=== PATIENT | female | born 1955 | race Caucasian/White ===

== ENCOUNTER 2019-06-22 16:59 | Emergency (ER) | payer OTHER ==
[~2019-06-22] VITALS: Ht 154.9 cm; Wt 104.3 kg
--- NOTE | 2019-06-22 17:25 | NUR ---
64 YEAR OLD FEMALE C/O COUGH AND CONGESTION, FEVER X 5 DAYS. TOOK LEVAQUIN FOR 5 DAYS NO RELIEF. ALERT AND ORIENTED X4 BREATHING EVEN UNLABORED WITH NO DISTRESS NOTED. SKIN INTACT. WAITING TO BE SEEN BY
[2019-06-22] MEDS ORDERED: predniSONE 20 MG TABLET ONE (17:54)
[2019-06-22] MEDS ORDERED: IPRATROPIUM NEB FS 0.5 MG/2.5 ML AMPUL.NEB NEB ONE (18:00)
[2019-06-22] MEDS ORDERED: ALBUTEROL FS 2.5 MG/3 ML VIAL.NEB NEB ONE (18:00)
[2019-06-22] MEDS ORDERED: ALBUTEROL FS 2.5 MG/3 ML VIAL.NEB ONE (18:00)
[2019-06-22] MEDS ORDERED: predniSONE 20 MG TABLET PO ONE (18:00)
[2019-06-22] MEDS ORDERED: IPRATROPIUM NEB FS 0.5 MG/2.5 ML AMPUL.NEB ONE (18:00)
--- NOTE | 2019-06-22 18:03 | NUR ---
OUTBOUND SALES REPRESENTATIVE AT BEDSIDE
--- NOTE | 2019-06-22 18:08 | NUR ---
RT AT BEDSIDE FOR BREATHING TX
--- NOTE | 2019-06-22 19:20 | NUR ---
Patient discharged to home in stable condition. Written and verbal after care instructions given. Patient verbalizes understanding of instruction.
[2019-06-22 19:25] VITALS: BP 166/92
== END 2019-06-22 19:25 | disposition home or self-care (01) ==
LOC: ER 17:09
DX: J45.909 Unspecified asthma, uncomplicated (principal); I10 Essential (primary) hypertension; Z85.43 Personal history of malignant neoplasm of ovary
CPT/HCPCS: 71045; 93005; 94644; 99285; J7512

== ENCOUNTER 2019-07-10 17:15 | Emergency (ER) | payer OTHER ==
[~2019-07-10] VITALS: Ht 160 cm; Wt 93.4 kg
--- NOTE | 2019-07-10 17:29 | NUR ---
PT TO ED BED 04 C/O GENERALIZED WEAKNESS, SOB FOR THE PAST 5 DAYS. PT ALSO C/O HIGH BLOOD SUGAR AND HYPERTENSION. PT DENIES CHEST PAIN. PLACED ON MONITOR. STABLE VITALS. AWAITING MD PANCHAL.
--- NOTE | 2019-07-10 17:45 | NUR ---
DR CHAMPION AT BEDSIDE FOR EVAL.
--- NOTE | 2019-07-10 17:58 | NUR ---
RADIOLOGY AT BEDSIDE FOR CHEST XRAY.
--- NOTE | 2019-07-10 18:00 | NUR ---
IV LINE STARTED BLOOD DRAWN AND SENT TO LAB.
[2019-07-10 18:07] LABS: BASOPHILS % (AUTO) 0.6 % (0.0-2.0); EOSINOPHILS % (AUTO) 0.7 % (0.0-6.0); HEMATOCRIT 36 % (33-45); HEMOGLOBIN 11.8 g/dL (11.5-14.8); LYMPHOCYTES # (AUTO) 0.7 /CMM (0.8-4.8); LYMPHOCYTES % (AUTO) 13.2 % (20.0-44.0); MEAN CORPUSCULAR HGB CONC 33 g/dl (31.0-36.0); MEAN CORPUSCULAR VOLUME 88 fL (82-100); MONOCYTES # (AUTO) 0.4 /CMM (0.1-1.30); MONOCYTES % (AUTO) 7.8 % (2.0-12.0); NEUTROPHILS # (AUTO) 4.2 /CMM (1.8-8.9); NEUTROPHILS % (AUTO) 77.7 % (43.0-81.0); PLATELET COUNT (AUTO) 213 /CMM (150-450); RED BLOOD CELL COUNT(AUTO) 4.08 MIL/uL (4.0-5.2); WHITE BLOOD COUNT (AUTO) 5.4 K/uL (4.3-11.0)
[2019-07-10 18:25] LABS: CALCIUM, SERUM 9.2 mg/dL (8.5-10.1); CARBON DIOXIDE 26 mmol/L (21-32); CHLORIDE 105 mmol/L (98-107); GLUCOSE 139 mg/dL (74-106); SODIUM SERUM 141 mmol/L (136-145); UREA NITROGEN, BLOOD 16 mg/dL (7-18)
[2019-07-10 18:30] LABS: ALANINE AMINOTRANSFERASE 32 U/L (12-78); ALBUMIN 3.8 g/dL (3.4-5.0); ALKALINE PHOSPHATASE 67 U/L (46-116); ASPARTATE AMINOTRANSFERASE 14 U/L (15-37); B-TYPE NATRIURETIC PEPTIDE 43 PG/ML (0-125); BILIRUBIN,DIRECT 0.1 mg/dL (0.0-0.2); BILIRUBIN,TOTAL 0.3 mg/dL (0.2-1.0); TOTAL PROTEIN, SERUM 7.5 g/dL (6.4-8.2)
--- NOTE | 2019-07-10 19:08 | NUR ---
REPORT TO CHILD CARE GROUP LEADER NURSE CHRISTIAN FOR RASHAD.
--- NOTE | 2019-07-10 20:52 | NUR ---
PT MEDICALLY CLEAR FOR DC HOME. IV removed. Catheter intact and site benign. Pressure and 4x4 applied to site. No bleeding noted.Patient discharged to home in stable condition. RX AND Written and verbal after care instructions given. Patient verbalizes understanding of instruction.
[2019-07-10 21:47] VITALS: BP 127/88
== END 2019-07-10 21:48 | disposition home or self-care (01) ==
LOC: ER 17:22
DX: J45.909 Unspecified asthma, uncomplicated (principal); I10 Essential (primary) hypertension; E11.9 Type 2 diabetes mellitus without complications
CPT/HCPCS: 36415; 71045-TC; 80048-TC; 80076-TC; 83880; 84484-TC; 85025-TC; 85378-TC; 85730-TC

== ENCOUNTER 2020-03-09 11:04 | Emergency (ER) | payer OTHER ==
[~2020-03-09] VITALS: Ht 152.4 cm; Wt 100.8 kg
--- NOTE | 2020-03-09 11:26 | NUR ---
BIBFAMILY FROM HOME TO ER BED 7. AAOX4. NOT IN RESP DISTRESS, BREATHING EVEN AND UNLABORED. CAME IN FOR COUGH, CONGESTION, FEVER AND LOSS OF TASTE FOR THE PAST 3 DAYS. PT'S FAMILY REPORTED THAT SHE RECEIVED TYLENOL @ 0200. PT IS SATTING @ 96-97% ON RA. AWAITING MD FOR EVAL.
--- NOTE | 2020-03-09 12:00 | NUR ---
COVID SWAB DONE AND SENT TO LAB
--- NOTE | 2020-03-09 12:00 | NUR ---
ROLDAN IN LAW - GERALDO - [phone]
[2020-03-09] MEDS ORDERED: CLONIDINE HCL 0.1 MG TABLET ONE (13:15)
--- NOTE | 2020-03-09 13:24 | NUR ---
SPOKE WITH SON, LOULOU, FOR DISCHARGE INSTRUCTION AND WILL RUBBER GOODS INSPECTOR TESTER MOTHER
[2020-03-09] MEDS ORDERED: CLONIDINE HCL 0.1 MG TABLET PO ONE (13:30)
--- NOTE | 2020-03-09 13:59 | NUR ---
FOLLOWED UP WITH PT'S DAUGTHER IN LAW REGARDING E MAIL SYSTEM ADMINISTRATOR. GERALDO ON HER WAY
[2020-03-09] MEDS ORDERED: ONDANSETRON 4 MG TAB.RAPDIS ONE (14:43)
--- NOTE | 2020-03-09 15:26 | NUR ---
Patient discharged to home in stable condition under the care of her daughter on;aw. Written and verbal after care instructions given to son over the phone. Patient's son verbalizes understanding of instruction. Pt ambulatory with a steady gait. Pt picked up the daughter in law
[2020-03-09 15:33] VITALS: BP 153/88
== END 2020-03-09 15:33 | disposition home or self-care (01) ==
LOC: ER 11:11
DX: U07.1 COVID-19 (principal); I10 Essential (primary) hypertension; Z85.43 Personal history of malignant neoplasm of ovary
CPT/HCPCS: 71045; 87426; 99284; C9803; Q0162

== ENCOUNTER 2020-09-12 15:00 | Emergency (ER) | payer OTHER ==
[~2020-09-12] VITALS: Ht 162.6 cm; Wt 104.8 kg
--- NOTE | 2020-09-12 15:00 | NUR ---
PT BIB DAUGHTER C/O DIZZINESS X 1 WEEK "LIKE THE ROOM IS SPINNING" PT IS AAOX4, NOT IN RESPIRATORY DISTRESS, HOOKED TO BARREL ROLLER, KEPT RESTED AND COMFORTABLE. WILL CONTINUE TO MONITOR.
[2020-09-12] MEDS ORDERED: CHOL200010 PO (15:09)
[2020-09-12] MEDS ORDERED: SERT-438 PO (15:09)
[2020-09-12] MEDS ORDERED: NIFE-34 PO (15:09)
[2020-09-12] MEDS ORDERED: LOSA100T31 PO (15:09)
[2020-09-12] MEDS ORDERED: OMEG-220 PO (15:09)
[2020-09-12] MEDS ORDERED: ASPI-1420 PO (15:09)
[2020-09-12] MEDS ORDERED: SIMV-49 PO (15:09)
[2020-09-12] MEDS ORDERED: HYDR25TA4 PO (15:09)
--- NOTE | 2020-09-12 15:29 | NUR ---
PT SEEN AND EXAMINED BY .
[2020-09-12] MEDS ORDERED: diphenhydrAMINE HCL 50 MG/ML VIAL IV ONE (15:30)
[2020-09-12] MEDS ORDERED: ONDANSETRON HCL/PF 4 MG/2 ML VIAL IVP ONE (15:30)
[2020-09-12] MEDS ORDERED: diphenhydrAMINE HCL 50 MG/ML VIAL ONE (15:32)
[2020-09-12] MEDS ORDERED: ONDANSETRON HCL/PF 4 MG/2 ML VIAL ONE (15:33)
--- NOTE | 2020-09-12 15:40 | NUR ---
IV LINE ESTABLISHED BLOOD DRAWN AND SENT TO LAB.
[2020-09-12] MEDS ORDERED: ACETAMINOPHEN ES 500 MG TABLET ONE (15:41)
--- NOTE | 2020-09-12 15:45 | NUR ---
INVESTMENT RECOVERY TECHNICIAN AT BEDSIDE FOR XRAY.
--- NOTE | 2020-09-12 15:52 | NUR ---
PT IS WHEELED TO CT SCAN VIA [facility].
[2020-09-12 15:59] LABS: BASOPHILS % (AUTO) 0.4 % (0.0-2.0); HEMATOCRIT 34 % (33-45); HEMOGLOBIN 11.3 g/dL (11.5-14.8); LYMPHOCYTES % (AUTO) 21.1 % (20.0-44.0); MEAN CORPUSCULAR HGB CONC 33 g/dl (31.0-36.0); MEAN CORPUSCULAR VOLUME 89 fL (82-100); MONOCYTES # (AUTO) 0.4 /CMM (0.1-1.30); MONOCYTES % (AUTO) 9.2 % (2.0-12.0); NEUTROPHILS # (AUTO) 3.1 /CMM (1.8-8.9); NEUTROPHILS % (AUTO) 65.3 % (43.0-81.0); PLATELET COUNT (AUTO) 218 /CMM (150-450); RED BLOOD CELL COUNT(AUTO) 3.81 MIL/uL (4.0-5.2); WHITE BLOOD COUNT (AUTO) 4.8 K/uL (4.3-11.0)
[2020-09-12] MEDS ORDERED: ACETAMINOPHEN ES 500 MG TABLET PO ONE (16:00)
[2020-09-12 16:12] LABS: ALBUMIN 3.4 g/dL (3.4-5.0); BILIRUBIN,DIRECT 0.1 mg/dL (0.0-0.2); BILIRUBIN,TOTAL 0.3 mg/dL (0.2-1.0); CALCIUM, SERUM 9.1 mg/dL (8.5-10.1); CREATININE 0.8 mg/dL (0.6-1.3); POTASSIUM 4.6 mmol/L (3.5-5.1)
[2020-09-12] MEDS ORDERED: MECL-159 PO (16:38)
[2020-09-12 17:07] VITALS: BP 127/71
== END 2020-09-12 17:07 | disposition home or self-care (01) ==
LOC: ER 15:02
DX: R42 Dizziness and giddiness (principal); I10 Essential (primary) hypertension; Z79.899 Other long term (current) drug therapy; Z79.82 Long term (current) use of aspirin
CPT/HCPCS: 36415; 70450-TC; 71045-TC; 72125-TC; 80048-TC; 80076-TC; 85025-TC; 85730-TC; J1200; J2405

== ENCOUNTER 2020-11-28 15:21 | Inpatient (IN) | payer OTHER ==
[~2020-11-28] VITALS: Ht 165.1 cm; Wt 103.4 kg
[~2020-11-28 15:21] MED LIST: ASPI-1420 PO; CHOL200010 PO; HYDR25TA4 PO; LOSA100T31 PO; MECL-159 PO; NIFE-34 PO; OMEG-72 PO; SERT50TA12 PO; SIMV-49 PO
[2020-11-28] MEDS ORDERED: MORPHINE SULFATE INJ 2 MG/ML DISP.SYRIN IV ONE (16:00)
[2020-11-28] MEDS ORDERED: PANTOPRAZOLE 40 MG VIAL IV ONE (16:00)
[2020-11-28] MEDS ORDERED: IV NS 0.9% 500 ML BAG IV ONE (16:00)
[2020-11-28] MEDS ORDERED: ONDANSETRON HCL/PF 4 MG/2 ML VIAL IVP ONE (16:00)
[2020-11-28] MEDS ORDERED: ONDANSETRON HCL/PF 4 MG/2 ML VIAL ONE (16:03)
[2020-11-28] MEDS ORDERED: PANTOPRAZOLE 40 MG VIAL ONE (16:03)
[2020-11-28] MEDS ORDERED: MORPHINE SULFATE INJ 2 MG/ML DISP.SYRIN ONE (16:04)
--- NOTE | 2020-11-28 16:15 | NUR ---
PT C/O ABD PAIN SINCE THIS AM. AAOX4, VSS. RR EVEN & UNLABORED. DENIES CP, SOB, DIZZINESS, N/V/D AT THIS TIME. PT SEEN & EVAL'D BY DR. JULIAN. MEDICATED ORDERED, PT LINDSAY WELL. WILL CONT TO MONITOR.
[2020-11-28 16:19] LABS: BASOPHILS % (AUTO) 0.2 % (0.0-2.0); EOSINOPHILS % (AUTO) 0.3 % (0.0-6.0); HEMATOCRIT 38 % (33-45); HEMOGLOBIN 12.8 g/dL (11.5-14.8); LYMPHOCYTES # (AUTO) 0.8 K/uL (0.8-4.8); LYMPHOCYTES % (AUTO) 15.6 % (20.0-44.0); MEAN CORPUSCULAR HGB CONC 33 g/dl (31.0-36.0); MEAN CORPUSCULAR VOLUME 88 fL (82-100); MONOCYTES # (AUTO) 0.4 K/uL (0.1-1.30); MONOCYTES % (AUTO) 8.1 % (2.0-12.0); NEUTROPHILS % (AUTO) 75.8 % (43.0-81.0); PLATELET COUNT (AUTO) 249 K/uL (150-450); RED BLOOD CELL COUNT(AUTO) 4.35 MIL/uL (4.0-5.2); WHITE BLOOD COUNT (AUTO) 5.3 K/uL (4.3-11.0)
[2020-11-28 16:29] LABS: CALCIUM, SERUM 9.4 mg/dL (8.5-10.1); CARBON DIOXIDE 29 mmol/L (21-32); CHLORIDE 102 mmol/L (98-107); CREATININE 0.9 mg/dL (0.6-1.3); GLUCOSE 162 mg/dL (74-106); POTASSIUM 3.9 mmol/L (3.5-5.1); SODIUM SERUM 140 mmol/L (136-145); UREA NITROGEN, BLOOD 21 mg/dL (7-18)
[2020-11-28 16:35] LABS: ALANINE AMINOTRANSFERASE 46 U/L (12-78); ALBUMIN 3.9 g/dL (3.4-5.0); ALKALINE PHOSPHATASE 64 U/L (46-116); ASPARTATE AMINOTRANSFERASE 20 U/L (15-37); BILIRUBIN,DIRECT 0.2 mg/dL (0.0-0.2); BILIRUBIN,TOTAL 0.6 mg/dL (0.2-1.0); LIPASE 83 U/L (73-393); TOTAL PROTEIN, SERUM 7.7 g/dL (6.4-8.2)
--- NOTE | 2020-11-28 16:36 | NUR ---
THE PATIENT IS TAKEN TO CT
[2020-11-28 17:23] LABS: BILIRUBIN,URINE Negative (NEGATIVE); COLOR,URINE YELLOW (YELLOW); LEUKOCYTE ESTERASE ,URINE Negative (NEGATIVE); NITRITE, URINE Negative (NEGATIVE); PH,URINE 7.5 (5.0-8.0); PROTEIN,URINE Negative (NEGATIVE); UGLUCOSE Negative (NEGATIVE); UROBILINOGEN,URINE 0.2 EU/dL (0.2)
[2020-11-28 17:24] LABS: BACTERIA,URINE Rare /HPF (None Seen); SQUAMOUS EPITHELIAL CELL,UR Few /HPF (None Seen); WBC,URINE NONE SEEN /HPF (0-3)
[2020-11-28] MEDS ORDERED: HYDROMORPHONE 1 MG/1 ML DISP.SYRIN ONE (18:00)
[2020-11-28] MEDS ORDERED: HYDROMORPHONE 1 MG/1 ML DISP.SYRIN IV ONE (18:00)
--- NOTE | 2020-11-28 18:08 | NUR ---
CALLED [facility], PAGED DR OSMAN
--- NOTE | 2020-11-28 18:13 | NUR ---
MEDICATED PER ERMD ORDER, PT LINDSAY WELL. WILL CONT TO MONITOR.
[2020-11-28] MEDS ORDERED: DIATR MEGLU/DIATRIZOATE SODIUM 120 ML BOTTLE (GASTROGRAPHIN) ONE (18:42)
--- NOTE | 2020-11-28 19:04 | NUR ---
Desi antunez in [facility] - 11/28/20 at [address]
--- NOTE | 2020-11-28 19:05 | NUR ---
called [facility], paged dr garcia
--- NOTE | 2020-11-28 20:09 | NUR ---
AYDINID SWABBED, SENT TO LAB.
[2020-11-28] MEDS ORDERED: ONDANSETRON HCL/PF 4 MG/2 ML VIAL IVP PRN (21:30)
[2020-11-28] MEDS ORDERED: ACETAMINOPHEN 650 MG/SUPP.RECT RC PRN (21:30)
[2020-11-28] MEDS ORDERED: MORPHINE SULFATE INJ 2 MG/ML DISP.SYRIN IV PRN (21:30)
--- NOTE | 2020-11-28 21:53 | NUR ---
PT ASLEEP, EASILY AWAKEN BY VERBAL STIMULI. DENIES ABD PAIN, CP, SOB, DIZZINESS, N/V AT THIIS TIME. AWAITING BED & WILL CONT TO MONITOR.
--- NOTE | 2020-11-28 23:32 | NUR ---
PER DAUGHTER IN LAW, DO NOT GIVE MORPHINE TO PT.
--- NOTE | 2020-11-28 23:33 | NUR ---
PER DAUGHTER IN LAW, DO NOT TAKE PREDNISONE, PT HAS ALLERGIC REACTION AFTER 3 DAYS.
[2020-11-29 00:30] VITALS: BP 121/59
[2020-11-29 00:45] VITALS: BP 121/59
--- NOTE | 2020-11-29 00:54 | NUR ---
REPORT GIVEN TO ZACH NATARAJAN FOR RASHAD. PT TRANSFERED PER ACLS PROT[employer]OL
--- NOTE | 2020-11-29 01:00 | NUR ---
JUVENILE CORRECTIONAL OFFICER NOTES RECEIVED PT FROM [facility] VIA [facility] ACCOMPANIED BY RN, JESE. PT A/O X4, ABLE TO VERBALIZE NEEDS. DENIES ANY PAIN. ON ROOM AIR, BREATHING EVEN/UNLABORED, NO SOB. IV SITE ON L-AC #20G INTACT/PATENT, FLUSHES WELL. PT HAD N/V X1 WITH CLEAR YELLOWISH EMESIS SHORTLY AFTER TRANSFERRING FROM [facility] TO BED AND WAS GIVEN ZOFRAN 4M IVP ORDERED. MADE COMFORTABLE AND KEPT HOB ELEVATED. PT STATED, "I'M OK" AFTER SETTLING IN BED. PT IN NO ACUTE DISTRESS. SAFETY MEASURES IN PLACE, BED IN LOWEST LOCKED POSITION, S/R UP X2, CALL LIGHT AND TABLE WITHIN EASY REACH. WILL CONTINUE TO MONITOR.
--- NOTE | 2020-11-29 01:27 | NUR ---
RN NOTES REASSESSED PT, SHE DENIES ANY NAUSEA AT THIS TIME. RESTING COMFORTABLY IN BED.
[2020-11-29] MEDS: IV D5/0.45 NACL 1,000 ML IV PRN ×2 (02:38→19:17)
[2020-11-29 04:00] VITALS: BP 127/66
[2020-11-29 06:09] LABS: BASOPHILS % (AUTO) 0.2 % (0.0-2.0); EOSINOPHILS % (AUTO) 0.4 % (0.0-6.0); HEMATOCRIT 34 % (33-45); HEMOGLOBIN 11.3 g/dL (11.5-14.8); LYMPHOCYTES # (AUTO) 0.8 K/uL (0.8-4.8); LYMPHOCYTES % (AUTO) 14.4 % (20.0-44.0); MEAN CORPUSCULAR HGB CONC 33 g/dl (31.0-36.0); MEAN CORPUSCULAR VOLUME 89 fL (82-100); MONOCYTES # (AUTO) 0.6 K/uL (0.1-1.30); MONOCYTES % (AUTO) 10.4 % (2.0-12.0); NEUTROPHILS % (AUTO) 74.6 % (43.0-81.0); PLATELET COUNT (AUTO) 227 K/uL (150-450); WHITE BLOOD COUNT (AUTO) 5.3 K/uL (4.3-11.0)
[2020-11-29 06:31] LABS: ALBUMIN 3.4 g/dL (3.4-5.0); BILIRUBIN,TOTAL 0.4 mg/dL (0.2-1.0); CALCIUM, SERUM 8.5 mg/dL (8.5-10.1); MAGNESIUM 2.3 mg/dL (1.8-2.4); PHOSPHORUS 4.7 mg/dL (2.5-4.9); POTASSIUM 3.8 mmol/L (3.5-5.1); TOTAL PROTEIN, SERUM 6.8 g/dL (6.4-8.2)
[2020-11-29 06:37] LABS: THYROID STIMULATING HORMONE 0.355 uIU/mL (0.358-3.74)
--- NOTE | 2020-11-29 06:50 | NUR ---
RN CLOSING NOTES PT RESTING IN BED, EASILY AWAKENS TO STIMULI, A/O X4. SHE DENIES ANY PAIN OR DISCOMFORT AT THIS TIME. NO OTHER EPISODE OF N/V THIS A.M. IV SITE ON L-AC INTACT/PATENT, INFUSING D5 1/2 NS @70ML/HR. PT IN NO ACUTE DISTRESS. SAFETY MEASURES IN PLACE, BED IN LOWEST LOCKED POSITION, S/R UP X2, CALL LIGHT AND TABLE WITHIN REACH.
--- NOTE | 2020-11-29 07:34 | NUR ---
MATRIX PLATER OPENING NOTES RECEIVED PATIENT IN BED, AWAKE, A/O X4. PATIENT ON ROOM AIR; BREATHING EVEN AND UNLABORED AT THIS TIME. NO COMPLAINS OF PAIN. TELE MONITOR WITH A CURRENT READING OF NORMAL SR 61 BPM. IV ACCESS ON LAC G # 20 PRESENT AND INTACT INFUSING D5 1/2NS @70 MLS/HR. SAFETY PRECAUTIONS IN PLACE; BED IN LOW POSITION AND LOCKED, RAILS UP X2, CALL LIGHT WITHIN REACH. WILL CONTINUE TO MONITOR PATIENT.
[2020-11-29 08:00] VITALS: BP 139/73
[2020-11-29] MEDS: PANTOPRAZOLE 40 MG VIAL IV SCH (08:12)
[2020-11-29 13:24] LABS: IRON, SERUM 36 ug/dl (50-175); TOTAL IRON BINDING CAPACITY 246 ug/dl (250-450)
[2020-11-29 13:36] LABS: FERRITIN 307 ng/mL (8-388)
[2020-11-29] MEDS ORDERED: IV NS 0.9% 250 ML IV ONE ×2 (16:40→17:28)
[2020-11-29] MEDS ORDERED: IOHEXOL-300 100 ML VIAL IV ONE ×2 (16:40→17:28)
[2020-11-29] MEDS ORDERED: GADOTERATE MEGLUMINE 10 MMOL/20 ML VIAL IV ONE (18:26)
--- NOTE | 2020-11-29 18:48 | NUR ---
BICYCLE MECHANIC CLOSING NOTES PATIENT REMAINS IN BED, AWAKE, A/O X4. PATIENT ON ROOM AIR; BREATHING EVEN AND UNLABORED AT THIS TIME. HAS SOME HEADACHES BUT DOES NOT WANT TO TAKE ANY MEDS AT THIS TIME. TELE MONITOR WITH A CURRENT READING OF NORMAL SR. IV ACCESS ON LAC G # 20 PRESENT AND INTACT INFUSING D5 1/2NS @70 MLS/HR. ALL NEEDS ATTENDED DURING THE DAY. SAFETY PRECAUTIONS IN PLACE; BED IN LOW POSITION AND LOCKED, RAILS UP X2, CALL LIGHT WITHIN REACH. WILL ENDORSE TO ALMOND BLANCHER OPERATOR NURSE.
--- NOTE | 2020-11-29 19:34 | NUR ---
RN NOTES RECEIVED PATIENT IN BED, ALERT AND ORIENTED X4, NO APPARENT DISTRESS, NO SOB, ANSWERS TO QUESTIONS APPROPRIATELY. NPO DUE TO SMALL BOWEL OBSTRUCTION, FALL PRECAUTION, WILL CONTINUE TO MONITOR.
[2020-11-29 19:55] VITALS: BP 148/71
[2020-11-29 20:00] VITALS: BP 148/71
[2020-11-30] VITALS: BP 139/70
--- NOTE | 2020-11-30 00:42 | NUR ---
RN NOTES DIET UPGRADED TO CLEAR LIQUID DIET BY DR. BLOCK. DRINKING WATER, NO COMPLAINTS OF ABDOMINAL PAIN. ENDORSED TO ZOHAIB FOR CONTINUITY OF CARE.
[2020-11-30 04:00] VITALS: BP 127/66
[2020-11-30 04:04] VITALS: BP 127/66
[2020-11-30 06:19] LABS: BASOPHILS % (AUTO) 0.5 % (0.0-2.0); HEMATOCRIT 34 % (33-45); HEMOGLOBIN 11.5 g/dL (11.5-14.8); LYMPHOCYTES # (AUTO) 0.9 K/uL (0.8-4.8); LYMPHOCYTES % (AUTO) 23.8 % (20.0-44.0); MEAN CORPUSCULAR HGB CONC 34 g/dl (31.0-36.0); MEAN CORPUSCULAR VOLUME 89 fL (82-100); MONOCYTES # (AUTO) 0.3 K/uL (0.1-1.30); MONOCYTES % (AUTO) 9.1 % (2.0-12.0); NEUTROPHILS # (AUTO) 2.3 K/uL (1.8-8.9); NEUTROPHILS % (AUTO) 62.6 % (43.0-81.0); PLATELET COUNT (AUTO) 211 K/uL (150-450); RED BLOOD CELL COUNT(AUTO) 3.82 MIL/uL (4.0-5.2); WHITE BLOOD COUNT (AUTO) 3.7 K/uL (4.3-11.0)
[2020-11-30 06:23] LABS: CALCIUM, SERUM 8.6 mg/dL (8.5-10.1); CREATININE 0.9 mg/dL (0.6-1.3); MAGNESIUM 2.4 mg/dL (1.8-2.4); POTASSIUM 3.4 mmol/L (3.5-5.1)
--- NOTE | 2020-11-30 07:57 | NUR ---
TELE/RN OPENING NOTES RECEIVED PATIENT ON BED AWAKE ALERT AND ORIENTED X4. PATIENT IS ON ROOM AIR. PATIENT IN NO APPARENT RESPIRATORY DISTRESS NOTED. NO COMPLAINED OF PAIN NOTED AT THIS TIME. TELE MONITOR READING SINUS FIDEL 67 BPM. WILL CONTINUE TO MONITOR.
[2020-11-30 08:00] VITALS: BP 138/71
[2020-11-30 08:06] LABS: IMMUNOGLOBULIN A, SERUM 164 mg/dL (87-352); IMMUNOGLOBULIN G, SERUM 1039 mg/dL (586-1602); IMMUNOGLOBULIN M, SERUM 65 mg/dL (26-217)
[2020-11-30] MEDS ORDERED: POTASSIUM CHLORIDE 20 MEQ POWDER PACKET PO ONE (09:00)
[2020-11-30 09:07] LABS: CANCER AG, 125 10.2 U/mL (0.0-38.1)
[2020-11-30] MEDS: PANTOPRAZOLE 40 MG VIAL IV SCH (09:09)
[2020-11-30] MEDS: IV D5/0.45 NACL 1,000 ML IV PRN (09:43)
[2020-11-30 12:00] VITALS: BP 102/68
[2020-11-30 16:00] VITALS: BP 142/70
--- NOTE | 2020-11-30 19:04 | NUR ---
TELE/RN CLOSING NOTES PATIENT IS ALERT AND ORIENTED X4. PATIENT IS ON ROOM AIR SATURATION 100%. PATIENT IN NO APPARENT RESPIRATORY DISTRESS NOTED. NO COMPLAINED OF PAIN NOTED AT THIS TIME. SEEN AND EXAMINED BY MD WITH ORDERS MADE AND CARRIED OUT. ALL DUE MEDICATIONS WAS GIVEN. IV ACCESS AT LEFT AC #20 G WITH IV FLUID OF OF D5 1/2 NS 1L AT 70 ML/HR ON AND INFUSING WELL. SAFETY PRECAUTIONS WAS IN PLACED. BED IN LOWEST POSITION AND LOCKED X2. CALL LIGHT WITHIN REACH. WILL ENDORSED TO TRAILER TRUCK DRIVER FOR RASHAD.
--- NOTE | 2020-11-30 20:05 | NUR ---
MS RN OPENING NOTE PATIENT A/OX4; ABLE TO MAKE NEEDS KNOWN. TOLERATING ROOM AIR WELL WITH NO SOB. LAC #20G D5 1/2 NS @70ML/HR; PATENT AND INTACT. DENIES PAIN OR DISCOMFORT AT THIS TIME. WILL CONTINUE TO REASSESS FOR PAIN AND N/V IN 30 MINUTES. SAFETY MEASURES IN PLACE: BED IN LOWEST LOCKED POSITION, SIDE RAILS UPX2, CALL LIGHT WITHIN EASY REACH, BED ALARMS ON. PATIENT IN STABLE CONDITION; WILL CONT. PLAN OF CARE.
--- NOTE | 2020-11-30 22:30 | NUR ---
MS RN NOTE DR. LAURENT AT PATIENT'S BEDSIDE DISCUSSING PLAN OF CARE WITH PATIENT AND FAMILY VIA PHONE CALL.
[2020-12-01] MEDS: IV D5/0.45 NACL 1,000 ML IV PRN (02:26)
[2020-12-01 05:54] LABS: BASOPHILS % (AUTO) 0.6 % (0.0-2.0); EOSINOPHILS % (AUTO) 4.3 % (0.0-6.0); HEMATOCRIT 32 % (33-45); HEMOGLOBIN 11.1 g/dL (11.5-14.8); LYMPHOCYTES # (AUTO) 0.7 K/uL (0.8-4.8); LYMPHOCYTES % (AUTO) 20.7 % (20.0-44.0); MEAN CORPUSCULAR HGB CONC 34 g/dl (31.0-36.0); MEAN CORPUSCULAR VOLUME 88 fL (82-100); MONOCYTES # (AUTO) 0.4 K/uL (0.1-1.30); MONOCYTES % (AUTO) 10.2 % (2.0-12.0); NEUTROPHILS # (AUTO) 2.3 K/uL (1.8-8.9); NEUTROPHILS % (AUTO) 64.2 % (43.0-81.0); PLATELET COUNT (AUTO) 196 K/uL (150-450); RED BLOOD CELL COUNT(AUTO) 3.68 MIL/uL (4.0-5.2); WHITE BLOOD COUNT (AUTO) 3.5 K/uL (4.3-11.0)
--- NOTE | 2020-12-01 07:15 | NUR ---
MS RN OPENING NOTE RECEIVED PATIENT ASLEEP BUT EASILY AROUSABLE A/OX4 SPEAKS FAROESE. ABLE TO MAKE NEEDS KNOWN. TOLERATING ROOM AIR WELL WITH NO SOB. PATIENT WITH LAC #20G WITH IVF OF D5 1/2 NS @70ML/HR, INFUSING WELL. PATIENT DENIES PAIN OR DISCOMFORT AT THIS TIME. SAFETY MEASURES IN PLACEWITH BED IN LOWEST LOCKED POSITION, SIDE RAILS UPX2, CALL LIGHT WITHIN EASY REACH, BED ALARMS ON. WILL CONTINUE TO MONITOR PATIENT.
--- NOTE | 2020-12-01 07:18 | NUR ---
MS RN CLOSING NOTE PATIENT A/OX4; SLEEPING AND ABLE TO MAKE NEEDS KNOWN. TOLERATING ROOM AIR WELL WITH NO SOB. LAC #20G D5 1/2 NS @70ML/HR; PATENT AND INTACT. DENIES PAIN OR DISCOMFORT AT THIS TIME. WILL CONTINUE TO REASSESS FOR PAIN AND N/V IN 30 MIN[address]ES. SAFETY MEASURES IN PLACE: BED IN LOWEST LOCKED POSITION, SIDE RAILS UPX2, CALL LIGHT WITHIN EASY REACH, BED ALARMS ON. PATIENT IN STABLE CONDITION; ENDORSED PLAN OF CARE TO ONCOMING MORNING RN
[2020-12-01 08:00] VITALS: BP 161/97
[2020-12-01] MEDS: PANTOPRAZOLE 40 MG VIAL IV SCH (09:09)
[2020-12-01 09:35] LABS: CALCIUM, SERUM 8.8 mg/dL (8.5-10.1); CREATININE 0.8 mg/dL (0.6-1.3); MAGNESIUM 2.2 mg/dL (1.8-2.4); POTASSIUM 3.5 mmol/L (3.5-5.1)
--- NOTE | 2020-12-01 12:30 | NUR ---
MS RN NOTE PATIENT SEEN BY DR. DAY WITH ORDER FOR DISCHARGE. HEALTH TEACHING DONE REGARDING DISCHARGE INSTRUCTIONS/ ORDERS. VERBALIZED UNDERSTANDING AND APPRECIATION. PATIENT APPARENTLY WAS GETTING IV ATB AT HOME FOR WOUND AND HAD PICC LINE PRIOR TO ADMISSION. DR. DAY AWARE AND ORDERED TO KEEP IV PICC LINE ON DISCHARGE. WILL CONTINUE MONITORING PATIENT. Addendum: 12/01/20 at 1651 by CAROLIN NUNEZ RN WRONG ENTRY
--- NOTE | 2020-12-01 13:00 | NUR ---
RN NOTE WOUND CARE DONE AND PROCEDURE TOLERATED WELL. PATIENT SIGNED INVENTORY LIST AND INSTURCTIONS AND ATTACHED TO CHART. IN STABLE CONDITION. AWAITING SON FOR PICK-UP. Addendum: 12/01/20 at 1653 by CAROLIN NUNEZ RN JOSE FABIANARD
--- NOTE | 2020-12-01 13:00 | NUR ---
MS RN NOTE PATIENT SEEN BY DR. DAY WITH ORDERS FOR DISCHARGE. HEALTH TEACHING DONE REGARDING DISCHARGE THROUGH SISTER ARCHITECTURAL JOB CAPTAIN. VERBALIZED UDERSTANDIGN AND APPRCIATION. IV ACESS REMOVED AND COVERED WITH BANDAID, TOLERATED WELL. IN STABLE CONDITION. WILL CONTINUET OT MONITOR PATIENT.
--- NOTE | 2020-12-01 16:00 | NUR ---
MS RN NOTE PATIENT DISCHARGED ORDERED, IN STABLE CONDITION. PATIENT WITH NO COMPLAIN OF PAIN OR NO SIGNS OF DISTRESS. PATIENT ACCOMPANIED BY NURSE CID TO LOBBY ON A WHEELCHAIR AND WAS PICKED UP BY SON VIA PRIVATE CAR. ENDORSED ACCORDINGLY. Addendum: 12/01/20 at 1653 by CAROLIN NUNEZ RN JOSE MAE
--- NOTE | 2020-12-01 17:10 | NUR ---
MS RN NOTE PATIENT DISCHARGED ORDERED. PATIENT ACCOMPANIED BY NURSE PALAK TO THE LOBBY ON A WHEELCHAIR. PATIENT PICKED UP BY SON BY A PRIVATE CAR. IN STABLE CONDITION.
[2020-12-02] MEDS ORDERED: PANTOPRAZOLE 40 MG TABLET.DR PO SCH (09:00)
[2020-12-02 12:06] LABS: *SPE A/G RATIO 0.8 (0.7-1.7); *SPE ALBUMIN 2.8 g/dL (2.9-4.4); *SPE ALPHA-1-GLOBULIN 0.2 g/dL (0.0-0.4); *SPE ALPHA-2-GLOBULIN 0.6 g/dL (0.4-1.0); *SPE BETA GLOBULIN 0.8 g/dL (0.7-1.3); *SPE GLOBULIN, TOTAL 3.4 g/dL (2.2-3.9); *SPE M-SPIKE Not Observed g/dL (Not Observed); *SPEGAMMA GLOBULIN 1.8 g/dL (0.4-1.8)
== END 2020-12-01 17:22 | disposition home or self-care (01) | DRG 247 ==
LOC: ER 15:32 → MED 23:59 → TELE 11-29 01:04 → MED 11-30 09:19
PROVIDERS: ADMIT Internal Medicine; ATTEND Nurse Practitioner Family
DX: K56.600 Partial intestinal obstruction, unspecified as to cause (principal); D68.59 Other primary thrombophilia; I11.9 Hypertensive heart disease without heart failure; G95.9 Disease of spinal cord, unspecified; C53.9 Malignant neoplasm of cervix uteri, unspecified; E66.9 Obesity, unspecified; D64.9 Anemia, unspecified; Z85.42 Personal history of malignant neoplasm of other parts of uterus; E78.5 Hyperlipidemia, unspecified; K76.0 Fatty (change of) liver, not elsewhere classified; K80.20 Calculus of gallbladder without cholecystitis without obstruction; Z74.09 Other reduced mobility; Z20.822 Contact with and (suspected) exposure to COVID-19; F32.9 Major depressive disorder, single episode, unspecified; K21.9 Gastro-esophageal reflux disease without esophagitis; Z85.43 Personal history of malignant neoplasm of ovary; Z79.82 Long term (current) use of aspirin; Z79.899 Other long term (current) drug therapy; Z92.21 Personal history of antineoplastic chemotherapy; Z92.3 Personal history of irradiation; Z98.890 Other specified postprocedural states; Z68.37 Body mass index [BMI] 37.0-37.9, adult; Z86.16 Personal history of COVID-19; K29.70 Gastritis, unspecified, without bleeding; K76.9 Liver disease, unspecified; Z85.41 Personal history of malignant neoplasm of cervix uteri
CPT/HCPCS: 36415; 71045-TC; 71260-TC; 72157-TC; 74018; 74250-TC; 76536-TC; 76700-TC; 80048-TC; 80053-TC; 80061-TC; 80076-TC; 81001; 82728-TC; 82784; 83540-TC; 83605-TC; 83690-TC; 83735-TC; 84100-TC; 84155; 84165; 84439-TC; 84443-TC; 84484-TC; 85025-TC; 86304; 86334; 86800; 87081-TC; A9575; C9113; C9803; G0378; J1170; J2270; J2405; J3490; J7040; J7050; Q9963; Q9967

== ENCOUNTER 2021-06-21 21:08 | Emergency (ER) | payer OTHER ==
[~2021-06-21] VITALS: Ht 165.1 cm; Wt 99.8 kg
[~2021-06-21 21:08] MED LIST changes: -MECL-159 PO
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
--- NOTE | 2021-06-21 22:12 | NUR ---
DR ROJO AT BEDSIDE
--- NOTE | 2021-06-21 22:27 | NUR ---
PRIMARY CONTACT: REBECCA (SON) [phone]; ALTERNATE CONTACT MARCIAL (SON) [phone]
--- NOTE | 2021-06-21 22:27 | NUR ---
WHITTLING ROOM OPERATOR AT BEDSIDE
[2021-06-21] MEDS ORDERED: IV NS 0.9% 250 ML IV ONE (23:02)
[2021-06-21] MEDS ORDERED: IOHEXOL-300 100 ML VIAL IV ONE (23:02)
--- NOTE | 2021-06-21 23:11 | NUR ---
IV LINE ESTABLISHED AT L HAND 20G. PATIENT TAKEN TO CT
[2021-06-21 23:28] LABS: CALCIUM, SERUM 9.1 mg/dL (8.5-10.1); CREATININE 0.9 mg/dL (0.6-1.3); POTASSIUM 3.8 mmol/L (3.5-5.1)
[2021-06-21 23:34] LABS: BASOPHILS % (AUTO) 0.3 % (0.0-2.0); HEMATOCRIT 32 % (33-45); HEMOGLOBIN 10.9 g/dL (11.5-14.8); LYMPHOCYTES # (AUTO) 0.7 K/uL (0.8-4.8); LYMPHOCYTES % (AUTO) 10.8 % (20.0-44.0); MEAN CORPUSCULAR HGB CONC 34 g/dl (31.0-36.0); MEAN CORPUSCULAR VOLUME 87 fL (82-100); MONOCYTES # (AUTO) 0.4 K/uL (0.1-1.30); MONOCYTES % (AUTO) 7.4 % (2.0-12.0); NEUTROPHILS # (AUTO) 4.8 K/uL (1.8-8.9); NEUTROPHILS % (AUTO) 80.5 % (43.0-81.0); PLATELET COUNT (AUTO) 207 K/uL (150-450); RED BLOOD CELL COUNT(AUTO) 3.73 MIL/uL (4.0-5.2)
--- NOTE | 2021-06-22 00:25 | NUR ---
DR ROJO AT BEDSIDE WITH PT'S SON, REBECCA, ON PHONE FOR TRANSLATION
[2021-06-22] MEDS ORDERED: IBUP-1957 PO (00:31)
[2021-06-22] MEDS ORDERED: CYCL5TAB PO (00:31)
[2021-06-22] MEDS ORDERED: KETOROLAC TROMETHAMINE INJ 30 MG/ML VIAL ONE (00:33)
[2021-06-22] MEDS ORDERED: CYCLOBENZAPRINE 10 MG TABLET ONE (00:34)
[2021-06-22] MEDS ORDERED: KETOROLAC TROMETHAMINE INJ 30 MG/ML VIAL IV ONE (01:00)
[2021-06-22] MEDS ORDERED: CYCLOBENZAPRINE 10 MG TABLET PO ONE (01:00)
--- NOTE | 2021-06-22 01:08 | NUR ---
Patient discharged to home in stable condition. Written and verbal after care instructions given. Patient verbalizes understanding of instruction. IV line discontinued and 2x2 gauze applied to site. pt picked up by son and ambulated out of ER with steady gait.
[2021-06-22 01:09] VITALS: BP 120/71
== END 2021-06-22 01:09 | disposition home or self-care (01) ==
LOC: ER 21:11
DX: R51.9 Headache, unspecified (principal); M54.2 Cervicalgia; R10.9 Unspecified abdominal pain; R07.81 Pleurodynia; I10 Essential (primary) hypertension; Z79.899 Other long term (current) drug therapy; Z79.82 Long term (current) use of aspirin; V49.49XA Driver injured in collision with other motor vehicles in traffic accident, initial encounter; Y93.89 Activity, other specified; Y92.413 State road as the place of occurrence of the external cause; Y99.8 Other external cause status
CPT/HCPCS: 36415; 70450; 71045; 71260; 72125; 74177; 80048; 85025; 85730; 96374; 99285; J1885; J7050; Q9967